=== PATIENT | female | born 1945 | race Caucasian/White ===

== ENCOUNTER 2017-02-23 10:15 | Emergency (ER) | payer BC ==
[~2017-02-23 10:15] MED LIST: ACET500CAP PO; ADVAIR250 INH; C25 PO; C5 PO; CALAN40 MG PO; CEFT2 PO; DRONED400 PO; FLECAINIDE150 MG PO; HALF81 PO; LORTAB 5 PO; NASONEX NAS; NATURAL TEARS; TEARS NATURA OP; V40 PO; V80 PO
[2017-02-23 10:25] LABS: BASOPHILS 0.2 %; BASOPHILS ABSOLUTE 0.01 10/3/uL (0.0-0.16); EOSINOPHILS 2.2 %; EOSINOPHILS ABSOLUTE 0.13 10/3/uL (0.0-0.53); ER CBC TAT 0 Hrs 07 Mins; HEMATOCRIT 37.8 % (36.0-48.0); HEMOGLOBIN 13.2 g/dL (12.0-16.0); IMMATURE GRANULOCYTES 0.2 %; IMMATURE GRANULOCYTES ABSOLUTE 0.01 10/3/uL (0.0-0.11); LYMPHOCYTES 19.7 %; LYMPHOCYTES ABSOLUTE 1.15 10/3/uL (0.67-4.30); MEAN CORPUS HGB CONC 34.9 g/dL (32.0-36.0); MEAN CORPUSCULAR HEMOGLOB 32.3 pg (26.0-34.0); MEAN PLATELET VOLUME 10.2 fL (9.2-13.0); MONOCYTES 10.3 %; NEUTROPHILS 67.4 %; NEUTROPHILS ABSOLUTE 3.93 10/3/uL (2.02-8.40); PLATELET COUNT 303 10/3/uL (150-400); RBC DISTRIBUTION WIDTH 13.1 % (12.0-16.0); RED CELL COUNT 4.09 10/6/uL (4.0-5.6); WHITE BLOOD CELLS 5.8 10/3/uL (4.5-10.5)
[2017-02-23 10:26] LABS: MANUAL DIFF NO %; MEAN CORPUSCULAR VOLUME 92.4 fL (80-100)
[2017-02-23 10:35] LABS: INTERNATIONAL NORMAL RATI 2.1 UNITS (-); PARTIAL THROMBO TIME 28.9 SEC (22.5-37.2); PROTIME (NOT ORD) 23.1 SEC (12.0-14.5)
[2017-02-23 10:39] LABS: BUN (BLOOD UREA NITROGEN) 13 MG/DL (6-23); CHEST PAIN PROFILE TAT 0 Hrs 21 Mins; CHLORIDE, SERUM 106 MMOL/L (96-112); CO2 (CARBON DIOXIDE) 25 MMOL/L (24-34); CREATININE 0.82 MG/DL (0.55-1.02); GFR AFRICAN AMERICAN 84 ML/MIN (>=60); GFR NON AFRICAN AMERICAN 73 ML/MIN (>=60); GLUCOSE, SERUM 87 MG/DL (60-99); POTASSIUM, SERUM 3.6 MMOL/L (3.5-5.3); SODIUM, SERUM 142 MMOL/L (135-148); TROPONIN I <0.02 NG/ML (<0.05)
[2017-07-02] MEDS ORDERED: NYS500UDL PO (11:06)
[2017-07-02] MEDS ORDERED: CEFT5 PO (11:06)
[2017-07-02] MEDS ORDERED: ZOFRAN ODT4 MG PO (11:07)
[2017-07-02] MEDS ORDERED: VITD PO (11:07)
[2017-07-02] MEDS ORDERED: THERGRANM PO (11:09)
[2017-07-02] MEDS ORDERED: PROAIR HFA INH (11:09)
[2017-07-09] MEDS ORDERED: L20 PO (11:21)
== END 2017-02-23 14:25 | disposition home or self-care (01) ==
LOC: ER 10:15
PROVIDERS: Emergency Medicine
DX: R00.2 Palpitations (principal); R06.02 Shortness of breath; J44.9 Chronic obstructive pulmonary disease, unspecified; Z88.1 Allergy status to other antibiotic agents; Z88.2 Allergy status to sulfonamides; Z88.8 Allergy status to other drugs, medicaments and biological substances; Z79.899 Other long term (current) drug therapy; Z79.01 Long term (current) use of anticoagulants
CPT/HCPCS: 71010; 71275; 80048; 83735; 83880; 84484; 85025; 85610; 85730; 93005; 99285; Q9967